=== PATIENT | female | born 1955 | race Caucasian/White ===

== ENCOUNTER 2016-10-29 08:50 | Day surgery (SDC) | payer OTHER ==
[2016-10-23 09:32] VITALS: BMI 29.0
--- NOTE | 2016-10-23 09:54 | PAT Medication Instructions ---
Service Date Oct 23, 2016. Current Home Medication List Ibuprofen (Advil), 600 MG PO prn Medication Instructions For Your Scheduled Surgery - Check with surgeon for instructions: Ibuprofen (Advil), 600 MG PO prn If you have any questions please call us at [phone] (Maria Del Rosario Wadsworth PA-C ) or [phone] or [phone]
[2016-10-23 10:34] LABS: BASO % 0.7 %; BASO ABS # 0.05 K/uL (0-0.2); COMPLETE YES; EOS % 7.3 %; HEMATOCRIT 42.2 % (37-47); IG% 0.3 %; LYMPH % 32.9 %; LYMPH ABS # 2.36 K/uL (1.2-3.4); MEAN CELL VOLUME 88.3 fL (80-100); MEAN CORPUSCULAR HEMOGLOBIN 29.9 pg (25-34); MEAN CORPUSCULAR HGB CONC 33.9 g/dl (32-36); MEAN PLATELET VOLUME 11.1 fL (7.4-10.4); MONO % 8.9 %; NEUT % 49.9 %; PLATELET COUNT 353 K/uL (130-400); RED BLOOD COUNT 4.78 M/uL (4.2-5.4); WHITE BLOOD COUNT 7.17 K/uL (4.8-10.8)
[2016-10-23 10:42] LABS: URINE APPEARANCE CLEAR (CLEAR); URINE BILIRUBIN NEG (NEG); URINE COLOR DK YELLOW; URINE EPITHELIAL CELL AUTO >30 /lpf (0-5); URINE NITRITE NEG (NEG); URINE PH 6.5 (4.5-7.5); URINE SPECIFIC GRAVITY 1.024 (1.000-1.030); UROBILINOGEN NEG (NEG)
[2016-10-23 10:44] LABS: MANUAL MICROSCOPIC REQUIRED? NO; REVIEW REQ? NO
--- NOTE | 2016-10-23 10:51 | DIAGNOSTIC IMAGING REPORT ---
CHEST PREADMISSION(PA/LAT) HISTORY: Preop. COMPARISON: Chest 03/17/2014. FINDINGS: The lungs are clear. Cardiac silhouette is normal in size. No pleural effusions. No pneumothorax. Cervical spinal fusion hardware. Prior cholecystectomy. IMPRESSION: No acute process. Electronically signed by: Flavio Torres M.D. 10/23/2016 10:49 AM
[2016-10-23 11:00] LABS: BUN/CREATININE RATIO 20.1 (10-20); CALCIUM 9.4 mg/dl (8.5-10.1); CREATININE 0.71 mg/dl (0.60-1.20); POTASSIUM 4.1 mmol/L (3.5-5.1)
[~2016-10-29] VITALS: Ht 157.5 cm; Wt 72.0 kg
[~2016-10-29 08:50] MED LIST: CIPROFLOXACIN / D5W 400 MG IV SCH; IBUP-1050 PO; LACTATED RINGER'S 1000ML 1,000 ML IV SCH
[2016-10-29 09:10] VITALS: BP 110/74; PULSE 66; TEMP 36.5; O2SAT 97; Ht 157.5 cm; Wt 72.0 kg
[2016-10-29] MEDS ORDERED: MIDAZOLAM HCL 1 MG/ML 2ML VIAL ONE (09:34)
[2016-10-29] MEDS ORDERED: FENTANYL CITRATE INJ 50 MCG/1 ML 2 ML VIAL ONE ×2 (09:34→10:38)
--- NOTE | 2016-10-29 09:51 | History & Physical Bridge Note ---
H&P Re-Evaluation Bridge Note: I have examined the patient, reviewed the History & Physical and in the interval since the performance of the History & Physical I have noted the following changes of clinical significance: No changes noted
[2016-10-29] MEDS ORDERED: PROPOFOL IV EMULSION 10 MG/ML 20 ML VIAL IV ONE (09:55)
[2016-10-29] MEDS ORDERED: ONDANSETRON INJ 2 MG/ML 2 ML VIAL ONE (09:55)
[2016-10-29] MEDS ORDERED: DEXAMETHASONE SOD INJ 4 MG/ML VIAL ONE (09:55)
[2016-10-29] MEDS ORDERED: LIDOCAINE HCL 2% 2 ML VIAL (20MG/ML) ONE (09:55)
[2016-10-29] MEDS ORDERED: SODIUM CHLORIDE 0.9% 1000ML 1,000 ML IV SCH (11:07)
[2016-10-29] MEDS ORDERED: DOCU-94 PO (11:09)
[2016-10-29] MEDS ORDERED: CIPR-255 PO (11:09)
[2016-10-29] MEDS ORDERED: HYDR-5688 PO (11:09)
--- NOTE | 2016-10-29 11:12 | Discharge Instructions ---
Discharge Instructions Admission Reason for Admission: Urge & Stress Incontinence Discharge Discharge Diagnosis / Problem: incontinence Discharge Goals Goal(s): Decrease discomfort, Improve function, Increase independence, Improve disease control Activity Recommendations Activity Limitations: per Instructions/Follow-up section Lifting Limitations: no more than 25 pounds (for the next 6 weeks) Exercise/Sports Limitations: until after follow-up appointment (Please avoid strenuous excercise, weight lifting, running, etc for the next 6 weeks) May Resume Sexual Activity: after follow-up appointment (nothing per vagina for 6 weeks) Shower/Bathe: tomorrow Driving or Machine Use: you may drive when you are off of pain medications and you feel comfortable controlling your vehicle . Instructions / Follow-Up Instructions / Follow-Up Please keep your previously scheduled follow up appointment with Dr. Gaitan Discharge Diet Recommended Diet: Regular Diet Procedures Procedures Performed: Mid-Urethral Sling, Cystoscopy Pending Studies Studies pending at discharge: no Medical Emergencies . Who to Call and When: Medical Emergencies: If at any time you feel your situation is an emergency, please call 911 immediately. . Non-Emergent Contact Non-Emergency issues call your: Urologist Call Non-Emergent contact if: you have a fever, temperature is above 101.5, your pain is not controlled, your pain is worsening, wound has increased drainage . . "Provider Documentation" section prepared by [employer] [facility]. VTE Core Measure Inpt VTE Proph given/why not?: Treatment not indicated [place] Drug Monitoring Program Search Results: patient reviewed within database, no issues identified
[2016-10-29] MEDS ORDERED: BACITRACIN 50000 UNIT VIAL IR ONE (11:13)
[2016-10-29] MEDS ORDERED: LIDOCAINE/EPINEPHRINE 1% 20 ML VIAL INJ ONE (11:13)
[2016-10-29] MEDS ORDERED: PREMARIN VAG CRM 14 APPLN/30 GM TUBE TOP ONE (11:13)
--- NOTE | 2016-10-29 11:14 | [facility] Post Operative Brief Note ---
Immediate Operative Summary Operative Date Oct 29, 2016. Pre-Operative Diagnosis Stress Incontinence Post-Operative Diagnosis Same as preoperative Procedure(s) Performed Retropubic Mid-Urethral Sling ([employer] - Advantage Fit - Ref # [id number]; Lot # [id number]), Cystoscopy Surgeon Dr. Shakir Gaitan Aged Or Disabled Care Worker Surgeon(s) None per surgeon Estimated Blood Loss 25ml Findings As per dictation Specimens None per surgeon Drains Moore (to be removed in PACU) Anesthesia Gen Complication(s) None Disposition Recovery Room / PACU (stable)
[2016-10-29] MEDS ORDERED: ACETAMINOPHEN 325 MG TAB PO PRN (11:15)
[2016-10-29] MEDS ORDERED: OXYCODONE/ACETAMINOPHEN 5-325 TAB PO PRN ×2 (11:15)
[2016-10-29] MEDS ORDERED: EpHEDrine SULFATE INJ 50 MG/ML AMP IV PRN (11:30)
[2016-10-29] MEDS ORDERED: MEPERIDINE HCL 25 MG/ML CARP IV PRN (11:30)
[2016-10-29] MEDS ORDERED: FENTANYL CITRATE INJ 50 MCG/1 ML 2 ML VIAL IV PRN (11:30)
[2016-10-29] MEDS ORDERED: LABETALOL HCL IV 5 MG/ML 20ML IV PRN (11:30)
[2016-10-29] MEDS ORDERED: ONDANSETRON INJ 2 MG/ML 2 ML VIAL IV PRN (11:30)
[2016-10-29] MEDS ORDERED: HYDROmorphone INJ 1 MG/ML SYR IV PRN (11:30)
[2016-10-29] MEDS ORDERED: ATROPINE SULFATE 0.1 MG/ML 5ML SYR IV PRN (11:30)
[2016-10-29 12:00] VITALS: BP 134/84; PULSE 66; TEMP 36.5; O2SAT 97
--- NOTE | 2016-10-29 12:07 | OPERATIVE REPORT ---
DATE OF OPERATION: 10/29/2016 PREOPERATIVE DIAGNOSIS: Stress urinary incontinence. POSTOPERATIVE DIAGNOSIS: Stress urinary incontinence. PROCEDURE PERFORMED: [place] [employer] Advantage Fit retropubic mid urethral sling and cystoscopy. ANESTHESIA: General. ESTIMATED BLOOD LOSS: 25 mL. URINE OUTPUT: Not recorded. SPECIMENS: None. DRAINS: She has a Moore catheter which will be removed in the PACU. DESCRIPTION OF THE PROCEDURE: Leslee Schultz was identified in the preoperative holding area. Appropriate informed consents were reviewed and completed and the patient was transported to the operating suite. She received Cipro, general anesthesia and was placed in dorsal lithotomy position where she was sterilely prepped and draped. I began the case by passing a 16 Turkish Moore catheter and draining the bladder completely. This catheter was then clamped and fixed up on the upper abdomen utilizing an extra hemostat. I then placed 2 retraction stitches to open the labia majora to allow full inspection of the vaginal vault. She has no significant cystocele or anterior prolapse. With the Moore balloon on gentle traction, I was easily able to demarcate the bladder neck and visualizing the urethral meatus. I placed an Allis clamp approximately 1 cm inside the urethral meatus and another just inside the bladder neck. I used these to help bring the tissue forward and I performed a hydrodissection using 1% lidocaine with epinephrine. I dissected in the midline and I dissected in the planned direction of my dissection on the left and right into the corners of the vault. I then made a midline incision of approximately a centimeter and a half. This was through the full vaginal wall thickness with care to avoid deep intrusion and encroachment upon the urethra. I then utilized the Metzenbaum scissors to dissect through this incision and laterally under the mucosa and vaginal wall until I felt the pubic arch on both the left and the right. After feeling an adequate window to the bone, I withdrew the Metzenbaum scissors. I marked an incision on the suprapubic area approximately 1 fingerbreadth lateral to the midline just above the top of the pubic symphysis. These incisions were marked and a gentle incision was made through the skin only, not through the full dermis. I then turned my attention back to the vaginal incision and I began to gently guide the [place] [employer] sling and introducing trocar into the incision first on the patient's right. I gently guided this through the opening with care to double check to ensure I did not button hole into the corner of the vault, and upon feeling the bone I curved the trocar underneath the bone and directed it towards my previous incision. After this was passed through, I left the sling in place and I withdrew the introducing trocar. I then performed the same procedure on the patient's left. I guided this through the vaginal incision and under the bone and around to the top incision. I ensured that there was no buttonholing in the corner of the vault and left the sling in place. I then removed the Moore catheter again and performed a cystoscopy. I utilized a 70 degree lens to inspect all anterior and lateral aspects of the bladder and I saw no evidence of any placement through the bladder or injury to the bladder in the midst of this. After confirming appropriate placement, I withdrew the cystoscope. I then tensioned the sling utilizing Metzenbaum scissors between the sling material and the urethra itself to avoid over-tensioning it. After feeling that I was in appropriate position I incised the plastic holding tab in the midline and removed the plastic sheathing leaving the mesh sling in place. I fine-tuned slightly, again feeling comfortable that I could pass Metzenbaum scissors between the back of the sling material and the urethra. After confirming excellent hemostasis, I closed the vaginal incision utilizing a running 2-0 Vicryl stitch, followed by trimming the mesh at the superior incisions below the skin edge pulling the skin up over them, and then closing the skin with Dermabond. I did place a Premarin soaked vaginal packing and I left the Moore catheter in place to go to the PACU. Both of these will be removed before the patient goes home. The patient tolerated this procedure very well. Of note, the Advantage Fit sling is reference number [id number], lot number [id number]. I attest to the content of the Intraoperative Record and any orders documented therein. Any exceptio ns are noted below.
[2016-10-29 12:30] VITALS: BP 125/84; PULSE 69; TEMP 36.5; O2SAT 97
[2016-10-29 12:59] VITALS: BP 136/82; PULSE 73; TEMP 36.4; O2SAT 96
--- NOTE | 2016-10-29 16:42 | Anesthesiology Progress Note ---
Anesthesia Post Op Note Date & Time Oct 29, 2016 at 16:42 Vital Signs Pain Intensity: 2 Vital Signs Past 12 Hours Date Time Temp Pulse Resp B/P Pulse Ox O2 Delivery O2 Flow Rate FiO2 10/29/16 12:59 36.4 73 18 136/82 96 Room Air 10/29/16 12:30 36.5 69 18 125/84 97 Room Air 10/29/16 12:00 36.5 66 16 134/84 97 Room Air 10/29/16 11:45 36 69 16 131/86 100 Room Air 10/29/16 11:35 68 14 120/85 100 Nasal Cannula 2 10/29/16 11:25 83 14 130/86 100 Nasal Cannula 2 10/29/16 11:15 36 76 16 110/78 98 Nasal Cannula 2 10/29/16 09:10 36.5 66 18 110/74 97 Room Air Notes Mental Status: alert / awake / arousable, participated in evaluation Pt Amnestic to Procedure: Yes Nausea / Vomiting: adequately controlled Pain: adequately controlled Airway Patency, RR, SpO2: stable & adequate BP & HR: stable & adequate Hydration State: stable & adequate Anesthetic Complications: no major complications apparent
== END 2016-10-29 13:00 | disposition home or self-care (01) ==
LOC: C.ACU 08:50
PROVIDERS: ATTEND Urology
DX: N39.3 Stress incontinence (female) (male) (principal); K85.90 Acute pancreatitis without necrosis or infection, unspecified

== ENCOUNTER → 2018-05-08 | Outpatient (CLI) | payer OTHER ==
[~2018-05-08] MED LIST changes: +CIPR-255 PO; -CIPROFLOXACIN / D5W 400 MG IV SCH; -LACTATED RINGER'S 1000ML 1,000 ML IV SCH
[2018-05-08 13:16] LABS: BASO % 0.4 %; BASO ABS # 0.05 K/uL (0-0.2); EOS % 5.4 %; EOS ABS # 0.62 K/uL (0-0.5); HEMATOCRIT 41.4 % (37-47); IG# 0.03 K/uL (0.00-0.02); LYMPH ABS # 2.99 K/uL (1.2-3.4); MEAN CELL VOLUME 88.7 fL (80-100); MEAN CORPUSCULAR HGB CONC 33.8 g/dl (32-36); MEAN PLATELET VOLUME 11.7 fL (7.4-10.4); MONO % 8.2 %; MONO ABS # 0.95 K/uL (0.11-0.59); NEUT % 59.7 %; NEUT ABS # 6.88 K/uL (1.4-6.5); PLATELET COUNT 306 K/uL (130-400); RED CELL DISTRIBUTION WIDTH CV 13.7 % (11.5-14.5); RED CELL DISTRIBUTION WIDTH SD 44.4 fL (36.4-46.3); WHITE BLOOD COUNT 11.52 K/uL (4.8-10.8)
[2018-05-08 14:22] LABS: ALBUMIN 3.5 gm/dl (3.4-5.0); ALKALINE PHOSPHATASE 75 U/L (45-117); ALT/SGPT 35 U/L (12-78); AST/SGOT 29 U/L (15-37); BLOOD UREA NITROGEN 10 mg/dl (7-18); CALCIUM 8.6 mg/dl (8.5-10.1); CARBON DIOXIDE 27 mmol/L (21-32); CHOLESTEROL 173 mg/dl (0-200); CREATININE 0.72 mg/dl (0.60-1.20); GLUCOSE 85 mg/dl (70-99); LDL CHOLESTEROL CALCULATED 87 mg/dl; POTASSIUM 3.7 mmol/L (3.5-5.1); SODIUM 138 mmol/L (136-145); TOTAL PROTEIN 7.4 gm/dl (6.4-8.2)
== END | disposition home or self-care (01) ==
LOC: C.LAB1850 11:44
PROVIDERS: ATTEND Internal Medicine
DX: Z00.00 Encounter for general adult medical examination without abnormal findings (principal); Z13.29 Encounter for screening for other suspected endocrine disorder; Z13.220 Encounter for screening for lipoid disorders; Z11.59 Encounter for screening for other viral diseases